=== PATIENT | male | born 1950 | race Caucasian/White ===

== ENCOUNTER 2022-06-21 15:03 | Inpatient (IN) | payer MEDICARE ==
[2022-06-21] MEDS ORDERED: SODIUM CHLORIDE 0.9% 1,000 ML IV STA (15:25)
[2022-06-21 15:30] LABS: Glucose,Whole Blood 295 mg/dL (70-110)
[2022-06-21 16:24] LABS: Basophils % (A) 0 %; Eosinophils # (A) 0.1 k/uL (0-0.7); Eosinophils % (A) 3 %; HCT 24.7 % (39.0-53.0); HGB 8.2 gm/dL (13.0-17.5); Lymphocytes % (A) 26 %; MCH 31.5 pg (25.0-35.0); MCHC 33.1 g/dL (31.0-37.0); MCV 95.4 fL (80.0-100.0); Mean Platelet Volume 8.7; Monocytes # (A) 0.3 k/uL (0-1.0); Monocytes % (A) 7 %; Neutrophils # (A) 2.4 k/uL (1.3-7.7); Neutrophils % (A) 62 %; Platelet Count 139 k/uL (150-450); RBC 2.59 m/uL (4.30-5.90); RDW 13.2 % (11.5-15.5); WBC 3.9 k/uL (3.8-10.6)
[2022-06-21 16:39] LABS: Albumin 2.5 g/dL (3.5-5.0); Magnesium 1.1 mg/dL (1.6-2.3); Potassium 3.3 mmol/L (3.5-5.1); Total Bilirubin 0.2 mg/dL (0.2-1.3); Total Protein 4.6 g/dL (6.3-8.2)
[2022-06-21] MEDS ORDERED: PRAMIPEXOLE 0.5 MG TAB PO STA (16:59)
[2022-06-21] MEDS ORDERED: ACETAMINOPHEN TAB 500 MG TAB PO STA (17:00)
[2022-06-21 17:53] LABS: Appearance,Urine Clear (Clear); Bilirubin,Urine Negative (Negative); Blood,Urine Negative (Negative); Color,Urine Yellow; Glucose,Urine (UA) 4+ (Negative); Ketones,Urine Negative (Negative); Leukocyte Esterase,Urine Negative (Negative); Nitrite,Urine Negative (Negative); Protein,Urine Negative (Negative); Specific Gravity,Urine 1.015 (1.001-1.035); Urobilinogen,Urine <2.0 mg/dL (<2.0)
--- NOTE | 2022-06-21 18:31 | CT ---
EXAMINATION TYPE: CT brain wo con DATE OF EXAM: 06/21/2022 COMPARISON: None HISTORY: h/o mini stroke, right side weakness CT DLP: 1133.4 mGycm Automated exposure control for dose reduction was used. Images obtained of the brain with no contrast. There is cerebral cortical atrophy. There is no mass effect or midline shift. No sign of intracranial hemorrhage. The calvarium is intact. There is normal aeration of the mastoid sinuses. IMPRESSION: Cerebral atrophy. No acute abnormality.
[2022-06-21] MEDS ORDERED: NALOXONE 0.4 MG/ML 1 ML VIAL IV PRN (20:08)
--- NOTE | 2022-06-21 20:08 | ED ---
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 His sister is at bedside and helps provide the history. States that the patient was hospitalized at [facility] for Covid. Patient was weak and accidentally wedged h imself in bed on his right side. He spent a considerable amount of time laying on his right side causing rhabdomyolysis and neuropraxia. He was transferred to rehab for the right-sided weakness. Reports that his right arm has improved however his right leg continues to be weak. He was discharged from rehab after insurance denied him any further stay. Patient's was discharged home. Since he has been home he has not been ambulating. Sister noted last night that the patient seemed more confused than normal. She was going to take a urine sample into the primary care office to evaluate for urinary tract infection however the last and the patient urinated was last night at 9:30. Patient has no urge to go. Today they checked the patient's glucose and it was in the 400s. Because of the hyperglycemia and confusion they called an ambulance. Patient arrives alert and able to answer questions. He reports that he feels like his weakness in his right side is worse than what it normally has been. No history of strokes. Does admit to some dysuria. No fevers. No chest pain. No other alleviating, precipitating or modifying factors - Related Data Home Medications Medication Instructions Recorded Confirmed Acetaminophen [Tylenol Arthritis] 650 mg PO Q4H PRN 06/21/22 06/21/22 Albuterol Sulfate [Ventolin HFA] 2 puff INHALATION RT-Q6H PRN 06/21/22 06/21/22 Budesonide/Formoterol Fumarate 2 puff INHALATION RT-BID PRN 06/21/22 06/22/22 [Symbicort 160-4.5 Mcg Inhaler] Cholecalciferol [Vitamin D3 (125 125 mcg PO DAILY 06/21/22 06/21/22 Mcg = 5000 Iu)] Empagliflozin [Jardiance] 10 mg PO DAILY 06/21/22 06/21/22 Furosemide [Lasix] 20 mg PO DIRECTED 06/21/22 06/21/22 Gabapentin 600 mg PO TID 06/21/22 06/21/22 HYDROcodone/APAP 5-325MG [[place] 1 tab PO Q4HR PRN 06/21/22 06/21/22 5-325] Pioglitazone [Actos] 45 mg PO DAILY 06/21/22 06/21/22 Simvastatin [Zocor] 20 mg PO HS 06/21/22 06/21/22 Terazosin HCl 10 mg PO DAILY 06/21/22 06/21/22 Vitamin B-12 250 Mcg 250 mcg PO DAILY 06/21/22 06/21/22 buPROPion XL [Wellbutrin XL] 300 mg PO DAILY 06/21/22 06/21/22 glipiZIDE [Glucotrol] 10 mg PO BID 06/21/22 06/21/22 lisinopriL [Zestril] 10 mg PO DAILY 06/21/22 06/21/22 metFORMIN HCL ER [Glucophage XR] 1,000 mg PO HS 06/21/22 06/21/22 tiZANidine HCL 2 mg PO HS PRN 06/21/22 06/21/22 Allergies Allergy/AdvReac Type Severity Reaction Status Date / Time latex Allergy Rash/Hives Verified 06/21/22 20:20 Review of Systems ROS Statement: Those systems with pertinent positive or pertinent negative responses have been documented in the HPI. ROS Other: All systems not noted in ROS Statement are negative. Past Medical History Past Medical History: Diabetes Mellitus Additional Past Medical History / Comment(s): post polio mylopathy, right sided hemiplegia History of Any Multi-Drug Resistant Organisms: None Reported Additional Past Surgical History / Comment(s): Mulitple neck fractures, cervical surgeries, lumbar decompression Past Psychological History: Bipolar Smoking Status: Former smoker Past Alcohol Use History: Occasional Past Drug Use History: None Reported - Past Family History familiy Family Medical History: Coronary Artery Disease (CAD) General Exam Limitations: no limitations General appearance: alert, in no apparent distress Head exam: Present: atraumatic, normocephalic, normal inspection Eye exam: Present: normal appearance, PERRL, EOMI. Absent: scleral icterus, conjunctival injection, periorbital swelling ENT exam: Present: normal exam, mucous membranes moist Neck exam: Present: normal inspection. Absent: tenderness, meningismus, lymphadenopathy Respiratory exam: Present: normal lung sounds bilaterally. Absent: respiratory distress, wheezes, rales, rhonchi, stridor Cardiovascular Exam: Present: regular rate, normal rhythm, normal heart sounds. Absent: systolic murmur, diastolic murmur, rubs, gallop, clicks GI/Abdominal exam: Present: soft, distended (suprapubic), normal bowel sounds. Absent: tenderness, guarding, rebound, rigid Extremities exam: Present: normal capillary refill, other (2/5 strength rle. equal glass cutting machine feeder strength of the bilateral upper extremities). Absent: tenderness, pedal edema, joint swelling, calf tenderness Back exam: Present: normal inspection Neurological exam: Present: alert, oriented X3, CN II-XII intact Psychiatric exam: Present: normal affect, normal mood Skin exam: Present: warm, dry, intact, normal color. Absent: rash Course Vital Signs 06/21/22 06/21/22 06/21/22 15:07 16:33 17:46 Temperature 97.0 F L Pulse Rate 77 85 92 Pulse Rate [ Left Pulse Oximetery] Respiratory 18 18 18 Rate Blood Pressure 103/61 113/59 136/70 Blood Pressure [Left Arm] O2 Sat by Pulse 99 98 96 Oximetry 06/21/22 06/21/22 06/21/22 18:00 22:58 23:39 Temperature 97.9 F Pulse Rate 94 107 H Pulse Rate [ 105 H Left Pulse Oximetery] Respiratory 18 17 16 Rate Blood Pressure 117/64 94/40 Blood Pressure 102/56 [Left Arm] O2 Sat by Pulse 96 97 97 Oximetry EKG Findings - EKG Comments: EKG Findings:: EKG demonstrates normal sinus rhythm with rate of 84. MN interval 190. QRS 101. QTC of 443. No acute ST segment elevations or depressions Medical Decision Making - Medical Decision Making Upon arrival patient was placed into room 4. Thorough history and physical exam is performed. Accu-Chek is obtained and is 295. IV is established and laboratory studies are conducted. They are reviewed. Sodium low at 129. Potassium 3.3. Magnesium extremely low at 1.1. Calcium 6. Ionized calcium is 4.5. We did perform a bladder scan which demonstrated greater than 700 in the patient's bladder. Because of this we did recommend Campbell placement for which the patient was agreeable. Patient was sent for a CT of his head because of his slurred speech and confusion. CT is negative for any acute process. Patient was given Tylenol and Mirapex for his restless leg. I also replaced the patient's magnesium. He is started on fluid hydration. Recommended admission with urology consultation for his urinary retention. Patient was agreeable to this plan. Spoke with Dr. Porter who agreed to admit the patient - Lab Data Result diagrams: 06/22/22 04:26 06/23/22 07:17 Lab Results 06/21/22 06/21/22 06/21/22 Range/Units 15:28 16:12 16:12 WBC 3.9 (3.8-10.6) k/uL RBC 2.59 L (4.30-5.90) m/uL Hgb 8.2 L (13.0-17.5) gm/dL Hct 24.7 L (39.0-53.0) % MCV 95.4 (80.0-100.0) fL MCH 31.5 (25.0-35.0) pg MCHC 33.1 (31.0-37.0) g/dL RDW 13.2 (11.5-15.5) % Plt Count 139 L (150-450) k/uL MPV 8.7 Neutrophils % 62 % Lymphocytes % 26 % Monocytes % 7 % Eosinophils % 3 % Basophils % 0 % Neutrophils # 2.4 (1.3-7.7) k/uL Lymphocytes # 1.0 (1.0-4.8) k/uL Monocytes # 0.3 (0-1.0) k/uL Eosinophils # 0.1 (0-0.7) k/uL Basophils # 0.0 (0-0.2) k/uL Sodium (137-145) mmol/L Potassium (3.5-5.1) mmol/L Chloride (98-107) mmol/L Carbon Dioxide (22-30) mmol/L Anion Gap mmol/L BUN (9-20) mg/dL Creatinine (0.66-1.25) mg/dL Est GFR (CKD-EPI)AfAm (>60 ml/min/1.73 sqM) Est GFR (CKD-EPI)NonAf (>60 ml/min/1.73 sqM) Glucose (74-99) mg/dL POC Glucose (mg/dL) 295 H (70-110) mg/dL POC Glu Media Operator ID Viktoria Lucero Lactic Ac Sepsis Rflx Plasma Lactic Acid Clarence (0.7-2.0) mmol/L Calcium (8.4-10.2) mg/dL Ionized Calcium Clare (4.5-5.3) mg/dL Magnesium (1.6-2.3) mg/dL Total Bilirubin (0.2-1.3) mg/dL AST (17-59) U/L ALT (4-49) U/L Alkaline Phosphatase (38-126) U/L Creatine Kinase (55-170) U/L Troponin I (0.000-0.034) ng/mL Total Protein (6.3-8.2) g/dL Albumin (3.5-5.0) g/dL Urine Color Yellow Urine Appearance Clear (Clear) Urine pH 5.0 (5.0-8.0) Ur Specific [place] 1.015 (1.001-1.035) Urine Protein Negative (Negative) Urine Glucose (UA) 4+ H (Negative) Urine Ketones Negative (Negative) Urine Blood Negative (Negative) Urine Nitrite Negative (Negative) Urine Bilirubin Negative (Negative) Urine Urobilinogen <2.0 (<2.0) mg/dL Ur Leukocyte Esterase Negative (Negative) 06/21/22 06/21/22 06/21/22 Range/Units 16:12 16:12 16:12 WBC (3.8-10.6) k/uL RBC (4.30-5.90) m/uL Hgb (13.0-17.5) gm/dL Hct (39.0-53.0) % MCV (80.0-100.0) fL MCH (25.0-35.0) pg MCHC (31.0-37.0) g/dL RDW (11.5-15.5) % Plt Count (150-450) k/uL MPV Neutrophils % % Lymphocytes % % Monocytes % % Eosinophils % % Basophils % % Neutrophils # (1.3-7.7) k/uL Lymphocytes # (1.0-4.8) k/uL Monocytes # (0-1.0) k/uL Eosinophils # (0-0.7) k/uL Basophils # (0-0.2) k/uL Sodium 129 L (137-145) mmol/L Potassium 3.3 L (3.5-5.1) mmol/L Chloride 104 (98-107) mmol/L Carbon Dioxide 15 L (22-30) mmol/L Anion Gap 10 mmol/L BUN 24 H (9-20) mg/dL Creatinine 1.05 (0.66-1.25) mg/dL Est GFR (CKD-EPI)AfAm 83 (>60 ml/min/1.73 sqM) Est GFR (CKD-EPI)NonAf 72 (>60 ml/min/1.73 sqM) Glucose 190 H (74-99) mg/dL POC Glucose (mg/dL) (70-110) mg/dL POC Glu Media Operator ID Lactic Ac Sepsis Rflx Plasma Lactic Acid Clarence 3.0 H* (0.7-2.0) mmol/L Calcium 6.0 L* (8.4-10.2) mg/dL Ionized Calcium Clare (4.5-5.3) mg/dL Magnesium 1.1 L (1.6-2.3) mg/dL Total Bilirubin 0.2 (0.2-1.3) mg/dL AST 34 (17-59) U/L ALT 35 (4-49) U/L Alkaline Phosphatase 47 (38-126) U/L Creatine Kinase 197 H (55-170) U/L Troponin I <0.012 (0.000-0.034) ng/mL Total Protein 4.6 L (6.3-8.2) g/dL Albumin 2.5 L (3.5-5.0) g/dL Urine Color Urine Appearance (Clear) Urine pH (5.0-8.0) Ur Specific [place] (1.001-1.035) Urine Protein (Negative) Urine Glucose (UA) (Negative) Urine Ketones (Negative) Urine Blood (Negative) Urine Nitrite (Negative) Urine Bilirubin (Negative) Urine Urobilinogen (<2.0) mg/dL Ur Leukocyte Esterase (Negative) 06/21/22 06/21/22 Range/Units 16:44 16:59 WBC (3.8-10.6) k/uL RBC (4.30-5.90) m/uL Hgb (13.0-17.5) gm/dL Hct (39.0-53.0) % MCV (80.0-100.0) fL MCH (25.0-35.0) pg MCHC (31.0-37.0) g/dL RDW (11.5-15.5) % Plt Count (150-450) k/uL MPV Neutrophils % % Lymphocytes % % Monocytes % % Eosinophils % % Basophils % % Neutrophils # (1.3-7.7) k/uL Lymphocytes # (1.0-4.8) k/uL Monocytes # (0-1.0) k/uL Eosinophils # (0-0.7) k/uL Basophils # (0-0.2) k/uL Sodium (137-145) mmol/L Potassium (3.5-5.1) mmol/L Chloride (98-107) mmol/L Carbon Dioxide (22-30) mmol/L Anion Gap mmol/L BUN (9-20) mg/dL Creatinine (0.66-1.25) mg/dL Est GFR (CKD-EPI)AfAm (>60 ml/min/1.73 sqM) Est GFR (CKD-EPI)NonAf (>60 ml/min/1.73 sqM) Glucose (74-99) mg/dL POC Glucose (mg/dL) (70-110) mg/dL POC Glu Media Operator ID Lactic Ac Sepsis Rflx Y Plasma Lactic Acid Clarence (0.7-2.0) mmol/L Calcium (8.4-10.2) mg/dL Ionized Calcium Clare 4.5 (4.5-5.3) mg/dL Magnesium (1.6-2.3) mg/dL Total Bilirubin (0.2-1.3) mg/dL AST (17-59) U/L ALT (4-49) U/L Alkaline Phosphatase (38-126) U/L Creatine Kinase (55-170) U/L Troponin I (0.000-0.034) ng/mL Total Protein (6.3-8.2) g/dL Albumin (3.5-5.0) g/dL Urine Color Urine Appearance (Clear) Urine pH (5.0-8.0) Ur Specific [place] (1.001-1.035) Urine Protein (Negative) Urine Glucose (UA) (Negative) Urine Ketones (Negative) Urine Blood (Negative) Urine Nitrite (Negative) Urine Bilirubin (Negative) Urine Urobilinogen (<2.0) mg/dL Ur Leukocyte Esterase (Negative) Disposition Clinical Impression: Right sided weakness, Encephalopathy, Hypomagnesemia, Urinary retention, Hyponatremia, Hypokalemia Disposition: ADMITTED IP TO THIS [facility] Condition: Stable Is patient prescribed a controlled substance at d/c from ED?: No Time of Disposition: 20:08 Decision to Admit Reason: Admit from EC Decision Date: 06/21/22 Decision Time: 20:08
[2022-06-21] MEDS: MAGNESIUM SULFATE-D5W PMX 1 GM in DEXTROSE/WATER 1 100ML.BAG IVPB SCH ×2 (20:14→22:38)
[2022-06-21] MEDS: SODIUM CHLORIDE 0.9% 1,000 ML IV SCH (22:37)
[2022-06-21] MEDS ORDERED: ALBUTEROL NEBULIZED 2.5 MG/3 ML INHALATION PRN (23:16)
[2022-06-21] MEDS ORDERED: HYDROcodone/APAP 5-325MG 1 EACH TAB PO PRN (23:16)
[2022-06-22] MEDS: ACETAMINOPHEN TAB 325 MG TAB PO PRN ×2 (01:15→09:26)
[2022-06-22] MEDS: tiZANidine 4 MG TAB PO PRN ×2 (01:15→22:27)
[2022-06-22] MEDS: ATORVASTATIN 10 MG TAB PO SCH ×2 (01:16→20:49)
[2022-06-22] MEDS: GABAPENTIN 300 MG CAP PO SCH ×4 (01:16→20:48)
[2022-06-22] MEDS ORDERED: MORPHINE SULFATE 4 MG/ML SYRINGE IVP PRN (01:21)
--- NOTE | 2022-06-22 04:23 | P.HPIM ---
History of Present Illness H&P Date: 06/21/22 Chief Complaint: confusion hyperglycemia 71 year old male with DM , Hypertension , history of polio patient was hospitalized at [facility] last month, for acute rhabdo, when he slid into the side of the bed and was stuck in there for about 6 hours. he also caught covid later while he was at the hospital being treated. since this incident he got extremly weak in both upper and lower right extremities , with his leg significantly weaker. he does admit to history of polio when he was younger, but up until last month , he was able to ambulate at times with a cane, and drive his car. he does admit to chronic neuropathy over his right upper and lower extremities. initially upon presentation to [facility] last month he was suspected to have a stroke but then later he was found to have rhabdo. once he was stable he was discharged to a rehab , and has noticed significant improvement over his right upper extremity , but not much in his leg. however, he only spent short period and was released due to insurance coverage, back home. for the past 3-4 days, it has been very difficult at home, as he is left home alone for long hours at a time, while he is completely weak in his right leg and unable to stand or transfer himself. today he was brought in due to confusion, hyperglycemia and urinary retention . however, during my interview he was appropriate answering questions properly. in the ED ct of the brain was done, no acute pathology blood work , showed electrolytes imbalance. patient also reports history of spine surgery due to pinched nerves. he otherwise denies any chest pain , trouble breathing, nausea vomiting, abd pain , headache, changes in vision or hearing , he denies any history of stroke Review of Systems Pertinent positives as noted in HPI. All other systems were reviewed and are negative Past Medical History Past Medical History: Diabetes Mellitus, Hypertension Additional Past Medical History / Comment(s): post polio mylopathy, right sided hemiplegia History of Any Multi-Drug Resistant Organisms: None Reported Additional Past Surgical History / Comment(s): Mulitple neck fractures, cervical surgeries, lumbar decompression Past Psychological History: Bipolar Smoking Status: Former smoker Past Alcohol Use History: Occasional Past Drug Use History: None Reported - Past Family History familiy Family Medical History: Coronary Artery Disease (CAD) Medications and Allergies Home Medications Medication Instructions Recorded Confirmed Type Acetaminophen [Tylenol Arthritis] 650 mg PO Q4H PRN 06/21/22 06/21/22 History Albuterol Sulfate [Ventolin HFA] 2 puff INHALATION RT-Q6H PRN 06/21/22 06/21/22 History Budesonide/Formoterol Fumarate 2 puff INHALATION DIRECTED PRN 06/21/22 06/21/22 History [Symbicort 160-4.5 Mcg Inhaler] Cholecalciferol [Vitamin D3 (125 125 mcg PO DAILY 06/21/22 06/21/22 History Mcg = 5000 Iu)] Empagliflozin [Jardiance] 10 mg PO DAILY 06/21/22 06/21/22 History Furosemide [Lasix] 20 mg PO DIRECTED 06/21/22 06/21/22 History Gabapentin 600 mg PO TID 06/21/22 06/21/22 History HYDROcodone/APAP 5-325MG [[place] 1 tab PO Q4HR PRN 06/21/22 06/21/22 History 5-325] Pioglitazone [Actos] 45 mg PO DAILY 06/21/22 06/21/22 History Simvastatin [Zocor] 20 mg PO HS 06/21/22 06/21/22 History Terazosin HCl 10 mg PO DAILY 06/21/22 06/21/22 History Vitamin B-12 250 Mcg 250 mcg PO DAILY 06/21/22 06/21/22 History buPROPion XL [Wellbutrin XL] 300 mg PO DAILY 06/21/22 06/21/22 History glipiZIDE [Glucotrol] 10 mg PO BID 06/21/22 06/21/22 History lisinopriL [Zestril] 10 mg PO DAILY 06/21/22 06/21/22 History metFORMIN HCL ER [Glucophage XR] 1,000 mg PO HS 06/21/22 06/21/22 History tiZANidine HCL 2 mg PO HS PRN 06/21/22 06/21/22 History Allergies Allergy/AdvReac Type Severity Reaction Status Date / Time latex Allergy Rash/Hives Verified 06/21/22 20:20 Physical Exam Vitals: Vital Signs Temp Pulse Resp BP Pulse Ox 06/21/22 18:00 94 18 117/64 96 06/21/22 17:46 92 18 136/70 96 06/21/22 16:33 85 18 113/59 98 06/21/22 15:07 97.0 F L 77 18 103/61 99 Intake and Output 06/21/22 06/21/22 06/21/22 06:59 14:59 22:59 Output Total 750 Balance -750 Output: Urine 750 Uretheral (Mcgraw) 750 Other: Weight 109.769 kg Constitutional: No acute distress, conversant, pleasant Eyes: Anicteric sclerae, moist conjunctiva, Pupils equal round reactive to light ENMT: NC/AT Oropharynx clear, no erythema, or exudates Neck: Supple, no masses, or JVD No carotid bruits No thyromegaly Lungs: Clear to auscultation Clear to percussion Normal respiratory effort, no accessory muscle use Cardiovascular: Heart regular in rate and rhythm, No murmurs, gallops, or rubs No peripheral edema Abdominal: Soft Nontender, no guarding, rebound or rigidity Abdomen moving with respiration Normoactive bowel sounds No hepatomegaly, No splenomegaly No palpable mass No abdominal wall hernia noted Skin: Normal temperature, tone, texture, turgor Extremities: No digital cyanosis No clubbing Pedal pulses intact and symmetrical Radial pulses intact and symmetrical No calf tenderness Psychiatric: Alert and oriented to person, place and time Neuro Muscles Strength 5/5 in left upper and lower extremity , 2/5 right lower extremity , and 4/5 right upper extremity no sensation over the right lower extremity , increase sensitivity to light touch over right upper extremity Cranial nerves II-XII grossly intact Lymphatics: no palpable cervical or supraclavicular lymph nodes Results CBC & Chem 7: 06/21/22 16:12 06/21/22 16:12 Labs: Abnormal Lab Results - Last 24 Hours (Table) 06/21/22 06/21/22 06/21/22 Range/Units 15:28 16:12 16:12 RBC 2.59 L (4.30-5.90) m/uL Hgb 8.2 L (13.0-17.5) gm/dL Hct 24.7 L (39.0-53.0) % Plt Count 139 L (150-450) k/uL Sodium (137-145) mmol/L Potassium (3.5-5.1) mmol/L Carbon Dioxide (22-30) mmol/L BUN (9-20) mg/dL Glucose (74-99) mg/dL POC Glucose (mg/dL) 295 H (70-110) mg/dL Plasma Lactic Acid Clarence (0.7-2.0) mmol/L Calcium (8.4-10.2) mg/dL Magnesium (1.6-2.3) mg/dL Creatine Kinase (55-170) U/L Total Protein (6.3-8.2) g/dL Albumin (3.5-5.0) g/dL Urine Glucose (UA) 4+ H (Negative) 06/21/22 06/21/22 Range/Units 16:12 16:12 RBC (4.30-5.90) m/uL Hgb (13.0-17.5) gm/dL Hct (39.0-53.0) % Plt Count (150-450) k/uL Sodium 129 L (137-145) mmol/L Potassium 3.3 L (3.5-5.1) mmol/L Carbon Dioxide 15 L (22-30) mmol/L BUN 24 H (9-20) mg/dL Glucose 190 H (74-99) mg/dL POC Glucose (mg/dL) (70-110) mg/dL Plasma Lactic Acid Clarence 3.0 H* (0.7-2.0) mmol/L Calcium 6.0 L* (8.4-10.2) mg/dL Magnesium 1.1 L (1.6-2.3) mg/dL Creatine Kinase 197 H (55-170) U/L Total Protein 4.6 L (6.3-8.2) g/dL Albumin 2.5 L (3.5-5.0) g/dL Urine Glucose (UA) (Negative) Assessment and Plan Assessment: acute metabolic encephalopathy , resolved electrolyte imbalance, hypokalemia , hypomagnesemia , hypocalcemia , and hyponatremia replace electrolytes and monitor levels PO calcium supplement Brain CT no acute pathology right sided weakness with history of post polio myelopathy neuro consult PT eval fall precautions urinary retention BPH s/p mcgraw cath urology consult continue doxazosin hyperglycemia , DM insulin sliding scale resume oral hypoglycemic agents anemia , denies GI bleeding continue to monitor full code DVT PPX heparin sc tid
[2022-06-22 05:45] LABS: Glucose,Whole Blood 273 mg/dL (70-110)
[2022-06-22 08:40] LABS: Glucose,Whole Blood 239 mg/dL (70-110)
[2022-06-22] MEDS: INSULIN ASPART (NovoLOG) 100 UNIT/ML VIAL SQ SCH ×4 (08:50→22:26)
[2022-06-22] MEDS: HEPARIN SODIUM,PORCINE/PF 5,000 UNIT/0.5 ML SYRINGE SQ SCH ×2 (08:50→16:39)
[2022-06-22] MEDS: SYMBICORT 160-4.5 MCG INHALER INHALATION PRN ×2 (09:00→19:47)
[2022-06-22] MEDS: DAPAGLIFLOZIN PROPANEDIOL 10 MG TABLET PO SCH (09:29)
[2022-06-22] MEDS: buPROPion XL 300 MG TAB.ER.24H PO SCH (09:29)
[2022-06-22] MEDS: CHOLECALCIFEROL 125 MCG (5000 IU) TABLET PO SCH (09:29)
[2022-06-22] MEDS: DOXAZOSIN 4 MG TAB PO SCH (09:30)
[2022-06-22] MEDS: glipiZIDE 10 MG TAB PO SCH ×2 (09:30→20:49)
[2022-06-22] MEDS: PIOGLITAZONE 45 MG TAB PO SCH (09:31)
[2022-06-22] MEDS: lisinopriL 10 MG TAB PO SCH (09:31)
[2022-06-22] MEDS: SODIUM CHLORIDE 0.9% 1,000 ML IV SCH ×2 (09:31→22:26)
[2022-06-22 09:37] LABS: African American GFR (CKD) 64.1 (60.0-200.0); Anion Gap 10.1 mmol/L (10.00-18.00); BUN/Creat Ratio 20.23 Ratio (12.00-20.00); Blood Urea Nitrogen 26.3 mg/dL (9.0-27.0); Calcium 8.9 mg/dL (8.7-10.3); Carbon Dioxide 22.9 mmol/L (20.0-27.5); Magnesium 2.3 mg/dL (1.5-2.4); Non-African American GFR(CKD) 55.3 (60.0-200.0); Potassium 4.8 mmol/L (3.5-5.5)
[2022-06-22 09:41] LABS: Basophils # (A) 0.02 X 10*3/uL (0.00-0.10); Basophils % (A) 0.4 %; Eosinophils # (A) 0.14 X 10*3/uL (0.04-0.35); Eosinophils % (A) 2.5 %; HGB 9.6 g/dL (13.0-17.0); Immature Grans, Automated 0.4 %; Lymphocytes # (A) 1.14 X 10*3/uL (0.90-5.00); Lymphocytes % (A) 20.5 %; MCH 30.8 pg (27.0-32.0); MCHC 33.1 g/dL (32.0-37.0); MCV 92.9 fL (80.0-97.0); Monocytes # (A) 0.56 X 10*3/uL (0.20-1.00); Monocytes % (A) 10.1 %; NRBC Per 100 WBC 0 /100 WBCS (0.0-0.0); Neutrophils # (A) 3.68 X 10*3/uL (1.80-7.70); Neutrophils % (A) 66.1 %; Platelet Count 213 X 10*3/uL (140-440); RBC 3.12 X 10*6/uL (4.40-5.60); RDW 13.2 % (11.5-14.5); WBC 5.56 X 10*3/uL (4.50-10.00)
[2022-06-22 11:27] LABS: Glucose,Whole Blood 250 mg/dL (70-110)
--- NOTE | 2022-06-22 11:40 | P.PN ---
Subjective Progress Note Date: 06/22/22 Principal diagnosis: [facility] Hospital Course: 71-year-old male with history of diabetes, hypertension, poliomyelitis presenting for acute encephalopathy, and electrolyte abnormalities. Patient was recently hospitalized at [place] for rhabdomyolysis, new onset right sided weakness. During that time he was suspected to have stroke, workup was negative. Patient claims that he also had MRI of his spine which did not show anything significant. He was then discharged to rehab, and noticed improvement in his right upper extremity, but not in his lower extremity. He was released from rehab due to insurance issues. Since coming home, he has been having diffi culty ambulating, transferring, eating and drinking. His son had noted that he was confused, and decided to bring him to the hospital. On admission, vital signs were within normal limits, his sodium was 129, potassium 3.3, glucose of 295, calcium of 6 and albumin of 2.5, magnesium 1.1 , lactic acid at 3. Since being admitted, his altered mentation has resolved, electrolytes have improved with repletion. Subjective: Patient seen and examined at bedside. No acute events overnight. He denies any significant chest pain, shortness of breath, abdominal pain, nausea, vomiting, diarrhea, or constipation. He has a Mcgraw catheter in place for urinary retention. He continues to have right-sided lower extremity weakness. Pertinent positives and negatives as discussed above, a complete review of systems was performed and all other systems are negative. Vitals Signs Reviewed. General: nontoxic, no distress, appears at stated age Derm: warm, dry Head: atraumatic, normocephalic, symmetric Eyes: EOMI, no lid lag, anicteric sclera Mouth: no lip lesion, mucus membranes moist Cardiovascular: S1S2 reg, no murmur Lungs: CTA bilateral, no rhonchi, no rales , no accessory muscle use Abdominal: soft, nontender to palpation, no guarding, no appreciable organomegaly Ext: no gross muscle atrophy, no edema, no contractures, 2/5 right lower extremity strength, 3/5 left lower extremity strength Neuro: CN II-XI grossly intact, no focal neuro deficits, diminished sensation in the right lower extremity Psych: Alert, oriented 3, appropriate affect Assessment and Plan: Acute metabolic encephalopathy , resolved Hypokalemia, hypomagnesemia, hypokalemia - resolved - Head CT no acute pathology Hyponatremia, likely hypovolemic -Continue fluids, encourage oral intake Right sided weakness Questionable history of polio myelitis -Patient claims that MRI spine was completed, normal -No recent lower extremity EMG studies -neuro consult -PT eval -fall precautions Urinary retention BPH -s/p mcgraw cath -urology consult -continue doxazosin Hyperglycemia , DM -insulin sliding scale -resume oral hypoglycemic agents Anemia , denies GI bleeding continue to monitor DVT ppx: Subcu heparin Code status: Full code Anticipated discharge place: Likely rehab Anticipated discharge time: Pending clinical course Objective - Vital Signs Vital signs: Vital Signs Temp 97.8 F 06/22/22 02:00 Pulse 110 H 06/22/22 02:00 Resp 16 06/22/22 02:00 BP 115/60 06/22/22 02:00 Pulse Ox 97 06/21/22 23:39 FiO2 Intake & Output 06/21/22 06/22/22 06/22/22 18:59 06:59 18:59 Output Total 750 1200 Balance -750 -1200 Weight 109.769 kg 109.769 kg Output: Urine 750 1200 Uretheral (Mcgraw) 750 - Labs CBC & Chem 7: 06/22/22 04:26 06/22/22 04:26 Labs: Abnormal Lab Results - Last 24 Hours (Table) 06/21/22 06/21/22 06/21/22 Range/Units 15:28 16:12 16:12 RBC 2.59 L (4.30-5.90) m/uL Hgb 8.2 L (13.0-17.5) gm/dL Hct 24.7 L (39.0-53.0) % Plt Count 139 L (150-450) k/uL Sodium (137-145) mmol/L Potassium (3.5-5.1) mmol/L Carbon Dioxide (22-30) mmol/L BUN (9-20) mg/dL Est GFR (CKD-EPI)NonAf (60.0-200.0) BUN/Creatinine Ratio (12.00-20.00) Ratio Glucose (74-99) mg/dL POC Glucose (mg/dL) 295 H (70-110) mg/dL Plasma Lactic Acid Clarence (0.7-2.0) mmol/L Calcium (8.4-10.2) mg/dL Magnesium (1.6-2.3) mg/dL Creatine Kinase (55-170) U/L Total Protein (6.3-8.2) g/dL Albumin (3.5-5.0) g/dL Urine Glucose (UA) 4+ H (Negative) 06/21/22 06/21/22 06/22/22 Range/Units 16:12 16:12 04:26 RBC 3.12 L (4.30-5.90) m/uL Hgb 9.6 L (13.0-17.5) gm/dL Hct 29.0 L (39.0-53.0) % Plt Count (150-450) k/uL Sodium 129 L (137-145) mmol/L Potassium 3.3 L (3.5-5.1) mmol/L Carbon Dioxide 15 L (22-30) mmol/L BUN 24 H (9-20) mg/dL Est GFR (CKD-EPI)NonAf (60.0-200.0) BUN/Creatinine Ratio (12.00-20.00) Ratio Glucose 190 H (74-99) mg/dL POC Glucose (mg/dL) (70-110) mg/dL Plasma Lactic Acid Clarence 3.0 H* (0.7-2.0) mmol/L Calcium 6.0 L* (8.4-10.2) mg/dL Magnesium 1.1 L (1.6-2.3) mg/dL Creatine Kinase 197 H (55-170) U/L Total Protein 4.6 L (6.3-8.2) g/dL Albumin 2.5 L (3.5-5.0) g/dL Urine Glucose (UA) (Negative) 06/22/22 06/22/22 06/22/22 Range/Units 04:26 05:42 08:37 RBC (4.30-5.90) m/uL Hgb (13.0-17.5) gm/dL Hct (39.0-53.0) % Plt Count (150-450) k/uL Sodium 129 L (137-145) mmol/L Potassium (3.5-5.1) mmol/L Carbon Dioxide (22-30) mmol/L BUN (9-20) mg/dL Est GFR (CKD-EPI)NonAf 55.3 L (60.0-200.0) BUN/Creatinine Ratio 20.23 H (12.00-20.00) Ratio Glucose 261 H (74-99) mg/dL POC Glucose (mg/dL) 273 H 239 H (70-110) mg/dL Plasma Lactic Acid Clarence (0.7-2.0) mmol/L Calcium (8.4-10.2) mg/dL Magnesium (1.6-2.3) mg/dL Creatine Kinase (55-170) U/L Total Protein (6.3-8.2) g/dL Albumin (3.5-5.0) g/dL Urine Glucose (UA) (Negative) 06/22/22 Range/Units 11:26 RBC (4.30-5.90) m/uL Hgb (13.0-17.5) gm/dL Hct (39.0-53.0) % Plt Count (150-450) k/uL Sodium (137-145) mmol/L Potassium (3.5-5.1) mmol/L Carbon Dioxide (22-30) mmol/L BUN (9-20) mg/dL Est GFR (CKD-EPI)NonAf (60.0-200.0) BUN/Creatinine Ratio (12.00-20.00) Ratio Glucose (74-99) mg/dL POC Glucose (mg/dL) 250 H (70-110) mg/dL Plasma Lactic Acid Clarence (0.7-2.0) mmol/L Calcium (8.4-10.2) mg/dL Magnesium (1.6-2.3) mg/dL Creatine Kinase (55-170) U/L Total Protein (6.3-8.2) g/dL Albumin (3.5-5.0) g/dL Urine Glucose (UA) (Negative)
--- NOTE | 2022-06-22 11:51 | P.CNNES ---
History of Present Illness Consult date: 06/22/22 Reason for Consult: right lower extremity weakness History of Present Illness: The patient is a 71-year-old right-handed male who is seen in neurologic consultation on June 22, 2022, via teleneurology. The patient is being seen because of right lower extremity weakness. Patient reportedly has a history of polio which affected his right arm and leg. More recently, the patient was admitted to [facility] after being wedged between the bed and the wall, on his right side. The patient reportedly had right-sided weakness after this prolonged episode. There was concern for stroke. Stroke was ruled out. The patient did suffer rhabdomyolysis. While hospitalized, the patient developed a Covid 19 infection. He did undergo physical therapy while in the hospital and was eventually discharged to subacute rehabilitation. The patient was just discharged from the rehabilitation facility on . He was reportedly discharged because insurance would no longer play. The patient reports that on Thursday morning he got up from bed. He was able to get into his wheelchair and went out to the kitchen to have GBS. His son reportedly felt that the patient was confused. Blood sugar was checked and was found to be 400. Patient was brought into the hospital. Patient reports never having a blood sugar that high before. In the emergency department a CT scan of the brain was performed. There is no evidence of acute hemorrhage or infarct. At this point in time, the patient reports continued weakness in his proximal right upper extremity and weakness in the right leg. He says he is unable to lift his right leg from the bed. He is able to move it on the bed, but unable to lift it against gravity. Prior to the incident which caused him to go to [facility], the patient reports that he was able to ambulate. In addition to the weakness, the patient reports spasms of his right leg, shooting pain and paresthesias. The patient denies changes in vision. He denies headache. There is no difficulty with speech or swallowing. The patient reports not being confused at this time. Past Medical History Past Medical History: Diabetes Mellitus, Hypertension Additional Past Medical History / Comment(s): post polio mylopathy, right sided hemiplegia History of Any Multi-Drug Resistant Organisms: None Reported Additional Past Surgical History / Comment(s): Mulitple neck fractures, cervical surgeries, lumbar decompression Past Anesthesia/Blood Transfusion Reactions: No Reported Reaction Past Psychological History: Bipolar Smoking Status: Former smoker Past Alcohol Use History: Occasional Past Drug Use History: None Reported - Past Family History familiy Family Medical History: Coronary Artery Disease (CAD) Medications and Allergies Home Medications Medication Instructions Recorded Confirmed Type Acetaminophen [Tylenol Arthritis] 650 mg PO Q4H PRN 06/21/22 06/21/22 History Albuterol Sulfate [Ventolin HFA] 2 puff INHALATION RT-Q6H PRN 06/21/22 06/21/22 History Budesonide/Formoterol Fumarate 2 puff INHALATION DIRECTED PRN 06/21/22 06/21/22 History [Symbicort 160-4.5 Mcg Inhaler] Cholecalciferol [Vitamin D3 (125 125 mcg PO DAILY 06/21/22 06/21/22 History Mcg = 5000 Iu)] Empagliflozin [Jardiance] 10 mg PO DAILY 06/21/22 06/21/22 History Furosemide [Lasix] 20 mg PO DIRECTED 06/21/22 06/21/22 History Gabapentin 600 mg PO TID 06/21/22 06/21/22 History HYDROcodone/APAP 5-325MG [[place] 1 tab PO Q4HR PRN 06/21/22 06/21/22 History 5-325] Pioglitazone [Actos] 45 mg PO DAILY 06/21/22 06/21/22 History Simvastatin [Zocor] 20 mg PO HS 06/21/22 06/21/22 History Terazosin HCl 10 mg PO DAILY 06/21/22 06/21/22 History Vitamin B-12 250 Mcg 250 mcg PO DAILY 06/21/22 06/21/22 History buPROPion XL [Wellbutrin XL] 300 mg PO DAILY 06/21/22 06/21/22 History glipiZIDE [Glucotrol] 10 mg PO BID 06/21/22 06/21/22 History lisinopriL [Zestril] 10 mg PO DAILY 06/21/22 06/21/22 History metFORMIN HCL ER [Glucophage XR] 1,000 mg PO HS 06/21/22 06/21/22 History tiZANidine HCL 2 mg PO HS PRN 06/21/22 06/21/22 History Allergies Allergy/AdvReac Type Severity Reaction Status Date / Time latex Allergy Rash/Hives Verified 06/21/22 20:20 Physical Examination - Vital Signs Vital Signs: Vital Signs Temp Pulse Pulse Resp BP BP Pulse Ox 06/22/22 02:00 97.8 F 110 H 16 115/60 06/21/22 23:39 97.9 F 105 H 16 102/56 97 06/21/22 22:58 107 H 17 94/40 97 06/21/22 18:00 94 18 117/64 96 06/21/22 17:46 92 18 136/70 96 06/21/22 16:33 85 18 113/59 98 06/21/22 15:07 97.0 F L 77 18 103/61 99 Intake and Output 06/21/22 06/22/22 06/22/22 22:59 06:59 14:59 Output Total 750 1200 Balance -750 -1200 Output: Urine 750 1200 Uretheral ([place]bell) 750 Other: Weight 109.769 kg Gen.: The patient is reclining in the bed. He is well-nourished, well-developed and in no acute distress. HEENT: Head is atraumatic, normocephalic. Fundus not visualized. There is no scleral icterus. Mucous members are moist. Neck: Supple, without carotid bruits Heart: Regular rate and rhythm Extremities: Without edema. There is evidence of muscle atrophy. Neurological examination Mental status: Patient is awake, alert and oriented 3. His speech is clear. There is no dysarthria or aphasia. Cranial nerves: Pupils are equal at 2 mm and reactive. Visual elizalde are full to confrontation. Extraocular movements are intact. There is no nystagmus. Facial sensation is intact. There is no facial asymmetry. Hearing is grossly intact. Uvula and palate are midline. Shoulder shrug is symmetric. Tongue protrudes midline. 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 Right biceps and triceps 4/5. At rest, the patient's right hip is externally rotated. Right adductor strength 3/5. Right abductor strength 4/5. Left adductor and abductor strengths 5/5. Right ankle dorsiflexion 1/5, plantarflexion 4/5. Left ankle plantar and dorsiflexion 5/5. Sensation: There is decreased light touch sensation in the right upper extremity. Light touch sensation is absent in the right lower extremity Deep tendon reflexes: 1+/4+ in the upper extremities. Left patellar reflex 2+/4+. Right patellar reflex is absent. Coordination: Finger to nose testing is intact on the left, with mild ataxia on the right secondary to weakness Gait: Not assessed Results - Laboratory Findings CBC and BMP: 06/22/22 04:26 06/22/22 04:26 Abnormal Lab Findings: Abnormal Labs 06/21/22 06/21/22 06/21/22 15:28 16:12 16:12 RBC 2.59 L Hgb 8.2 L Hct 24.7 L Plt Count 139 L Sodium Potassium Carbon Dioxide BUN Est GFR (CKD-EPI)NonAf BUN/Creatinine Ratio Glucose POC Glucose (mg/dL) 295 H Plasma Lactic Acid Clarence Calcium Magnesium Creatine Kinase Total Protein Albumin Urine Glucose (UA) 4+ H 06/21/22 06/21/22 06/22/22 16:12 16:12 04:26 RBC 3.12 L Hgb 9.6 L Hct 29.0 L Plt Count Sodium 129 L Potassium 3.3 L Carbon Dioxide 15 L BUN 24 H Est GFR (CKD-EPI)NonAf BUN/Creatinine Ratio Glucose 190 H POC Glucose (mg/dL) Plasma Lactic Acid Clarence 3.0 H* Calcium 6.0 L* Magnesium 1.1 L Creatine Kinase 197 H Total Protein 4.6 L Albumin 2.5 L Urine Glucose (UA) 06/22/22 06/22/22 06/22/22 04:26 05:42 08:37 RBC Hgb Hct Plt Count Sodium 129 L Potassium Carbon Dioxide BUN Est GFR (CKD-EPI)NonAf 55.3 L BUN/Creatinine Ratio 20.23 H Glucose 261 H POC Glucose (mg/dL) 273 H 239 H Plasma Lactic Acid Clarence Calcium Magnesium Creatine Kinase Total Protein Albumin Urine Glucose (UA) - Diagnostic Findings Comments: CT scan of the brain reveals no signs of acute hemorrhage or infarct. There is reported cerebral atrophy Assessment and Plan Assessment: 1. 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 Hyponatremia 3. History of diabetes mellitus with hyperglycemia 4. Recent Covid 19 infection Plan: 1. Physical therapy for evaluation and treatment 2. The patient should follow up with a neurologist as an outpatient for further testing such as EMG 3. Consider gabapentin for neuropathic pain 4. Your treatment of hyponatremia Thank you for allowing us to participate in the care of this patient Dr. Loredo will assume neurologic coverage of this patient has of 06/21/2022 Time with Patient: Greater than 30 (spent 25 minutes examining this highly complex patient. Spent another 20 minutes reviewing labs, documentation, imaging reports and preparing this note)
--- NOTE | 2022-06-22 11:59 | P.GSCN ---
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 Was recently admitted to [facility] in [place] for his right-sided weakness, subsequently discharged to rehab, he was recently discharged home from rehab. He was brought to the emergency department by his sister which indicated patient was confused, CT brain in the ED showed no acute process. His urinalysis was only significant for glucosuria. His void residual was checked and was greater than 700 mL, Mcgraw catheter was placed. This morning on evaluation patient's altered mental status has resolved, he denies any voiding issues at baseline. No previous known history of urinary retention. Denies any gross hematuria or dysuria. He is on Cardura at baseline. Review of Systems - Constitutional Denies chills, Denies fever - EENT Ears, nose, mouth and throat: Denies dysphagia - Cardiovascular Denies chest pain, Denies shortness of breath - Respiratory Denies cough, Denies 7 - Gastrointestinal Reports as per HPI - Genitourinary Denies dysuria, Denies hematuria - Integumentary Denies rash, Denies unusual bruising - Neurological Reports weakness, Denies headaches Past Medical History Past Medical History: Diabetes Mellitus, Hypertension Additional Past Medical History / Comment(s): post polio mylopathy, right sided hemiplegia History of Any Multi-Drug Resistant Organisms: None Reported Additional Past Surgical History / Comment(s): Mulitple neck fractures, cervical surgeries, lumbar decompression Past Anesthesia/Blood Transfusion Reactions: No Reported Reaction Past Psychological History: Bipolar Smoking Status: Former smoker Past Alcohol Use History: Occasional Past Drug Use History: None Reported - Past Family History familiy Family Medical History: Coronary Artery Disease (CAD) Medications and Allergies Home Medications Medication Instructions Recorded Confirmed Type Acetaminophen [Tylenol Arthritis] 650 mg PO Q4H PRN 06/21/22 06/21/22 History Albuterol Sulfate [Ventolin HFA] 2 puff INHALATION RT-Q6H PRN 06/21/22 06/21/22 History Budesonide/Formoterol Fumarate 2 puff INHALATION DIRECTED PRN 06/21/22 06/21/22 History [Symbicort 160-4.5 Mcg Inhaler] Cholecalciferol [Vitamin D3 (125 125 mcg PO DAILY 06/21/22 06/21/22 History Mcg = 5000 Iu)] Empagliflozin [Jardiance] 10 mg PO DAILY 06/21/22 06/21/22 History Furosemide [Lasix] 20 mg PO DIRECTED 06/21/22 06/21/22 History Gabapentin 600 mg PO TID 06/21/22 06/21/22 History HYDROcodone/APAP 5-325MG [[place] 1 tab PO Q4HR PRN 06/21/22 06/21/22 History 5-325] Pioglitazone [Actos] 45 mg PO DAILY 06/21/22 06/21/22 History Simvastatin [Zocor] 20 mg PO HS 06/21/22 06/21/22 History Terazosin HCl 10 mg PO DAILY 06/21/22 06/21/22 History Vitamin B-12 250 Mcg 250 mcg PO DAILY 06/21/22 06/21/22 History buPROPion XL [Wellbutrin XL] 300 mg PO DAILY 06/21/22 06/21/22 History glipiZIDE [Glucotrol] 10 mg PO BID 06/21/22 06/21/22 History lisinopriL [Zestril] 10 mg PO DAILY 06/21/22 06/21/22 History metFORMIN HCL ER [Glucophage XR] 1,000 mg PO HS 06/21/22 06/21/22 History tiZANidine HCL 2 mg PO HS PRN 06/21/22 06/21/22 History Allergies Allergy/AdvReac Type Severity Reaction Status Date / Time latex Allergy Rash/Hives Verified 06/21/22 20:20 Surgical - Exam Vital Signs Temp Pulse Resp BP Pulse Ox 97.0 F L 77 18 103/61 99 06/21/22 15:07 06/21/22 15:07 06/21/22 15:07 06/21/22 15:07 06/21/22 15:07 - General no distress, no pain - Eyes normal ocular movement, no pale - ENT normal nares, normal mucosa - Respiratory normal expansion, normal respiratory effort - Abdomen Abdomen: soft, non tender - Genitourinary Mcgraw draining clear yellow urine - Psychiatric oriented to time, oriented to person, oriented to place Results - Labs 06/22/22 04:26 06/22/22 04:26 Abnormal Lab Results - Last 24 Hours (Table) 06/21/22 06/21/22 06/21/22 Range/Units 15:28 16:12 16:12 RBC 2.59 L (4.30-5.90) m/uL Hgb 8.2 L (13.0-17.5) gm/dL Hct 24.7 L (39.0-53.0) % Plt Count 139 L (150-450) k/uL Sodium (137-145) mmol/L Potassium (3.5-5.1) mmol/L Carbon Dioxide (22-30) mmol/L BUN (9-20) mg/dL Est GFR (CKD-EPI)NonAf (60.0-200.0) BUN/Creatinine Ratio (12.00-20.00) Ratio Glucose (74-99) mg/dL POC Glucose (mg/dL) 295 H (70-110) mg/dL Plasma Lactic Acid Clarence (0.7-2.0) mmol/L Calcium (8.4-10.2) mg/dL Magnesium (1.6-2.3) mg/dL Creatine Kinase (55-170) U/L Total Protein (6.3-8.2) g/dL Albumin (3.5-5.0) g/dL Urine Glucose (UA) 4+ H (Negative) 06/21/22 06/21/22 06/22/22 Range/Units 16:12 16:12 04:26 RBC 3.12 L (4.30-5.90) m/uL Hgb 9.6 L (13.0-17.5) gm/dL Hct 29.0 L (39.0-53.0) % Plt Count (150-450) k/uL Sodium 129 L (137-145) mmol/L Potassium 3.3 L (3.5-5.1) mmol/L Carbon Dioxide 15 L (22-30) mmol/L BUN 24 H (9-20) mg/dL Est GFR (CKD-EPI)NonAf (60.0-200.0) BUN/Creatinine Ratio (12.00-20.00) Ratio Glucose 190 H (74-99) mg/dL POC Glucose (mg/dL) (70-110) mg/dL Plasma Lactic Acid Clarence 3.0 H* (0.7-2.0) mmol/L Calcium 6.0 L* (8.4-10.2) mg/dL Magnesium 1.1 L (1.6-2.3) mg/dL Creatine Kinase 197 H (55-170) U/L Total Protein 4.6 L (6.3-8.2) g/dL Albumin 2.5 L (3.5-5.0) g/dL Urine Glucose (UA) (Negative) 06/22/22 06/22/22 06/22/22 Range/Units 04:26 05:42 08:37 RBC (4.30-5.90) m/uL Hgb (13.0-17.5) gm/dL Hct (39.0-53.0) % Plt Count (150-450) k/uL Sodium 129 L (137-145) mmol/L Potassium (3.5-5.1) mmol/L Carbon Dioxide (22-30) mmol/L BUN (9-20) mg/dL Est GFR (CKD-EPI)NonAf 55.3 L (60.0-200.0) BUN/Creatinine Ratio 20.23 H (12.00-20.00) Ratio Glucose 261 H (74-99) mg/dL POC Glucose (mg/dL) 273 H 239 H (70-110) mg/dL Plasma Lactic Acid Clarence (0.7-2.0) mmol/L Calcium (8.4-10.2) mg/dL Magnesium (1.6-2.3) mg/dL Creatine Kinase (55-170) U/L Total Protein (6.3-8.2) g/dL Albumin (3.5-5.0) g/dL Urine Glucose (UA) (Negative) 06/22/22 Range/Units 11:26 RBC (4.30-5.90) m/uL Hgb (13.0-17.5) gm/dL Hct (39.0-53.0) % Plt Count (150-450) k/uL Sodium (137-145) mmol/L Potassium (3.5-5.1) mmol/L Carbon Dioxide (22-30) mmol/L BUN (9-20) mg/dL Est GFR (CKD-EPI)NonAf (60.0-200.0) BUN/Creatinine Ratio (12.00-20.00) Ratio Glucose (74-99) mg/dL POC Glucose (mg/dL) 250 H (70-110) mg/dL Plasma Lactic Acid Clarence (0.7-2.0) mmol/L Calcium (8.4-10.2) mg/dL Magnesium (1.6-2.3) mg/dL Creatine Kinase (55-170) U/L Total Protein (6.3-8.2) g/dL Albumin (3.5-5.0) g/dL Urine Glucose (UA) (Negative) Diabetes panel 06/21/22 06/22/22 Range/Units 16:12 04:26 Sodium 129 L 129 L (137-145) mmol/L Potassium 3.3 L 4.8 (3.5-5.1) mmol/L Chloride 104 96 (98-107) mmol/L Carbon Dioxide 15 L 22.9 (22-30) mmol/L BUN 24 H 26.3 (9-20) mg/dL Creatinine 1.05 1.3 (0.66-1.25) mg/dL Glucose 190 H 261 H (74-99) mg/dL Calcium 6.0 L* 8.9 (8.4-10.2) mg/dL AST 34 (17-59) U/L ALT 35 (4-49) U/L Alkaline Phosphatase 47 (38-126) U/L Total Protein 4.6 L (6.3-8.2) g/dL Albumin 2.5 L (3.5-5.0) g/dL Calcium panel 06/21/22 06/21/22 06/22/22 Range/Units 16:12 16:59 04:26 Calcium 6.0 L* 8.9 (8.4-10.2) mg/dL Ionized Calcium Clare 4.5 (4.5-5.3) mg/dL Albumin 2.5 L (3.5-5.0) g/dL Pituitary panel 06/21/22 06/22/22 Range/Units 16:12 04:26 Sodium 129 L 129 L (137-145) mmol/L Potassium 3.3 L 4.8 (3.5-5.1) mmol/L Chloride 104 96 (98-107) mmol/L Carbon Dioxide 15 L 22.9 (22-30) mmol/L BUN 24 H 26.3 (9-20) mg/dL Creatinine 1.05 1.3 (0.66-1.25) mg/dL Glucose 190 H 261 H (74-99) mg/dL Calcium 6.0 L* 8.9 (8.4-10.2) mg/dL Adrenal panel 06/21/22 06/22/22 Range/Units 16:12 04:26 Sodium 129 L 129 L (137-145) mmol/L Potassium 3.3 L 4.8 (3.5-5.1) mmol/L Chloride 104 96 (98-107) mmol/L Carbon Dioxide 15 L 22.9 (22-30) mmol/L BUN 24 H 26.3 (9-20) mg/dL Creatinine 1.05 1.3 (0.66-1.25) mg/dL Glucose 190 H 261 H (74-99) mg/dL Calcium 6.0 L* 8.9 (8.4-10.2) mg/dL Total Bilirubin 0.2 (0.2-1.3) mg/dL AST 34 (17-59) U/L ALT 35 (4-49) U/L Alkaline Phosphatase 47 (38-126) U/L Total Protein 4.6 L (6.3-8.2) g/dL Albumin 2.5 L (3.5-5.0) g/dL Assessment and Plan Assessment: 71-year-old male with history of right-sided hemiplegia. Admitted to the hospital with altered mental status which has resolved this morning. Mcgraw was placed for urinary retention of 700 mL. No voiding dysfunction at baseline, but is on Cardura baseline -Continue Cardura -Can remove Mcgraw prior to discharge, postvoid is less than 350 mL can leave mcgraw catheter out.
[2022-06-22 13:53] LABS: Glucose,Whole Blood 254 mg/dL (70-110)
[2022-06-22] MEDS: HYDROcodone/APAP 5-325MG 1 EACH TAB PO PRN ×2 (13:57→18:54)
[2022-06-22 16:04] LABS: Glucose,Whole Blood 190 mg/dL (70-110)
[2022-06-22 20:58] LABS: Glucose,Whole Blood 174 mg/dL (70-110)
[2022-06-23] MEDS: HEPARIN SODIUM,PORCINE/PF 5,000 UNIT/0.5 ML SYRINGE SQ SCH ×4 (00:31→23:54)
[2022-06-23] MEDS: HYDROcodone/APAP 5-325MG 1 EACH TAB PO PRN ×4 (04:57→19:01)
[2022-06-23 06:08] LABS: Glucose,Whole Blood 172 mg/dL (70-110)
[2022-06-23] MEDS: ACETAMINOPHEN TAB 325 MG TAB PO PRN (07:56)
[2022-06-23] MEDS: GABAPENTIN 300 MG CAP PO SCH ×3 (07:57→21:05)
[2022-06-23] MEDS: DOXAZOSIN 4 MG TAB PO SCH (07:57)
[2022-06-23] MEDS: INSULIN ASPART (NovoLOG) 100 UNIT/ML VIAL SQ SCH ×4 (07:57→21:06)
[2022-06-23] MEDS: DAPAGLIFLOZIN PROPANEDIOL 10 MG TABLET PO SCH (07:57)
[2022-06-23] MEDS: PIOGLITAZONE 45 MG TAB PO SCH (07:57)
[2022-06-23] MEDS: glipiZIDE 10 MG TAB PO SCH ×2 (07:58→21:06)
[2022-06-23] MEDS: lisinopriL 10 MG TAB PO SCH (07:58)
[2022-06-23] MEDS: buPROPion XL 300 MG TAB.ER.24H PO SCH (07:58)
[2022-06-23] MEDS: CHOLECALCIFEROL 125 MCG (5000 IU) TABLET PO SCH (07:58)
[2022-06-23 10:46] LABS: Anion Gap 8.8 mmol/L (10.00-18.00); BUN/Creat Ratio 19.2 Ratio (12.00-20.00); Blood Urea Nitrogen 19.2 mg/dL (9.0-27.0); Carbon Dioxide 22.2 mmol/L (20.0-27.5); Non-African American GFR(CKD) 75.9 (60.0-200.0); Potassium 5.4 mmol/L (3.5-5.5)
--- NOTE | 2022-06-23 11:09 | P.PN ---
Subjective Progress Note Date: 06/23/22 Principal diagnosis: [facility] Hospital Course: 71-year-old male with history of diabetes, hypertension, poliomyelitis presenting for acute encephalopathy, and electrolyte abnormalities. Patient was recently hospitalized at [place] for rhabdomyolysis, new onset right sided weakness. During that time he was suspected to have stroke, workup was negative. Patient claims that he also had MRI of his spine which did not show anything significant. He was then discharged to rehab, and noticed improvement in his right upper extremity, but not in his lower extremity. He was released from rehab due to insurance issues. Since coming home, he has been having diffi culty ambulating, transferring, eating and drinking. His son had noted that he was confused, and decided to bring him to the hospital. On admission, vital signs were within normal limits, his sodium was 129, potassium 3.3, glucose of 295, calcium of 6 and albumin of 2.5, magnesium 1.1 , lactic acid at 3. Since being admitted, his altered mentation has resolved, electrolytes have improved with repletion. Neurology was consulted. Recommending outpatient follow-up for lower extremity weakness. Urology was consulted, recommending voiding trial. Patient wants her to voiding trial at rehab as an outpatient. Subjective: Patient seen and examined at bedside. No acute events overnight. He denies any significant chest pain, shortness of breath, abdominal pain, nausea, vomiting, diarrhea, or constipation. He has a Mcgraw catheter in place for urinary retention. He continues to have right-sided lower extremity weakness. Pertinent positives and negatives as discussed above, a complete review of systems was performed and all other systems are negative. Vitals Signs Reviewed. General: nontoxic, no distress, appears at stated age Derm: warm, dry Head: atraumatic, normocephalic, symmetric Eyes: EOMI, no lid lag, anicteric sclera Mouth: no lip lesion, mucus membranes moist Cardiovascular: S1S2 reg, no murmur Lungs: CTA bilateral, no rhonchi, no rales , no accessory muscle use Abdominal: soft, nontender to palpation, no guarding, no appreciable organomegaly Ext: no gross muscle atrophy, no edema, no contractures, 2/5 right lower extremity strength, 3/5 left lower extremity strength Neuro: CN II-XI grossly intact, no focal neuro deficits, diminished sensation in the right lower extremity Psych: Alert, oriented 3, appropriate affect Assessment and Plan: Acute metabolic encephalopathy , resolved Hypokalemia, hypomagnesemia, hypokalemia - resolved - Head CT no acute pathology Hyponatremia, likely hypovolemic - improved -Continue fluids, encourage oral intake Right sided weakness Questionable history of polio myelitis -Patient claims that MRI spine was completed, normal -No recent lower extremity EMG studies -neuro consult - recommending outpatient follow-up -PT eval -fall precautions Urinary retention BPH -s/p mcgraw cath -urology consult -continue doxazosin -Patient would like to do a voiding trial as an outpatient Hyperglycemia , DM -insulin sliding scale -resume oral hypoglycemic agents Anemia , denies GI bleeding continue to monitor DVT ppx: Subcu heparin Code status: Full code Anticipated discharge place: Likely rehab Anticipated discharge time: When bed available Objective - Vital Signs Vital signs: Vital Signs Temp 98.6 F 06/23/22 07:52 Pulse 86 06/23/22 07:52 Resp 16 06/23/22 07:52 BP 155/68 06/23/22 07:52 Pulse Ox 96 06/23/22 07:52 FiO2 Intake & Output 06/22/22 06/23/22 06/23/22 18:59 06:59 18:59 Intake Total 600 Output Total 1600 1200 Balance -1000 -1200 Intake: Oral 600 Output: Urine 1600 1200 Other: Voiding Method Indwelling Catheter Indwelling Catheter Indwelling Catheter - Labs CBC & Chem 7: 06/22/22 04:26 06/23/22 07:17 Labs: Abnormal Lab Results - Last 24 Hours (Table) 06/22/22 06/22/22 06/22/22 Range/Units 11:26 13:52 16:04 Sodium (135-145) mmol/L Anion Gap (10.00-18.00) mmol/L Glucose (70-110) mg/dL POC Glucose (mg/dL) 250 H 254 H 190 H (70-110) mg/dL 06/22/22 06/23/22 06/23/22 Range/Units 20:57 06:06 07:17 Sodium 132 L (135-145) mmol/L Anion Gap 8.80 L (10.00-18.00) mmol/L Glucose 149 H (70-110) mg/dL POC Glucose (mg/dL) 174 H 172 H (70-110) mg/dL
[2022-06-23 11:54] LABS: Glucose,Whole Blood 153 mg/dL (70-110)
[2022-06-23] MEDS: SODIUM CHLORIDE 0.9% 1,000 ML IV SCH ×2 (11:56→23:54)
[2022-06-23] MEDS: polyethylene glycoL 3350 17 GM POWD.PACK PO SCH (12:52)
[2022-06-23] MEDS: SENNOSIDES 8.6 MG TAB PO SCH (12:53)
[2022-06-23 14:02] VITALS: BMI 31.0
[2022-06-23 17:02] LABS: Glucose,Whole Blood 126 mg/dL (70-110)
[2022-06-23] MEDS: SYMBICORT 160-4.5 MCG INHALER INHALATION PRN (20:06)
[2022-06-23 20:22] LABS: Glucose,Whole Blood 186 mg/dL (70-110)
[2022-06-23] MEDS: ATORVASTATIN 10 MG TAB PO SCH (21:06)
[2022-06-24] MEDS: HYDROcodone/APAP 5-325MG 1 EACH TAB PO PRN ×3 (04:41→16:37)
[2022-06-24 05:40] LABS: Glucose,Whole Blood 118 mg/dL (70-110)
[2022-06-24] MEDS: INSULIN ASPART (NovoLOG) 100 UNIT/ML VIAL SQ SCH ×2 (06:11→12:25)
[2022-06-24 07:23] VITALS: RESP 16
[2022-06-24] MEDS: SYMBICORT 160-4.5 MCG INHALER INHALATION PRN (08:17)
[2022-06-24] MEDS: HEPARIN SODIUM,PORCINE/PF 5,000 UNIT/0.5 ML SYRINGE SQ SCH (09:26)
[2022-06-24] MEDS: lisinopriL 10 MG TAB PO SCH (09:28)
[2022-06-24] MEDS: GABAPENTIN 300 MG CAP PO SCH ×2 (09:28→16:36)
[2022-06-24] MEDS: glipiZIDE 10 MG TAB PO SCH (09:28)
[2022-06-24] MEDS: DAPAGLIFLOZIN PROPANEDIOL 10 MG TABLET PO SCH (09:28)
[2022-06-24] MEDS: CHOLECALCIFEROL 125 MCG (5000 IU) TABLET PO SCH (09:28)
[2022-06-24] MEDS: buPROPion XL 300 MG TAB.ER.24H PO SCH (09:28)
[2022-06-24] MEDS: DOXAZOSIN 4 MG TAB PO SCH (09:28)
[2022-06-24] MEDS: SENNOSIDES 8.6 MG TAB PO SCH (09:28)
[2022-06-24] MEDS: PIOGLITAZONE 45 MG TAB PO SCH (09:29)
[2022-06-24] MEDS: polyethylene glycoL 3350 17 GM POWD.PACK PO SCH (09:30)
--- NOTE | 2022-06-24 09:43 | P.PN ---
Subjective Progress Note Date: 06/23/22 Patient was initially seen by Dr. Harman. Please refer to her note for details. Patient has history of seizure disorder, came with breakthrough seizure, felt to be related to possible alcohol withdrawal. Patient has reported history of seizures. He stopped drinking about 10 days ago. Recently had an EEG with his own neurologist, but the results are not available. Patient has history of multiple neck and back surgeries. He states he had 4 broken neck and 2 lumbar surgeries He states he had 2 neck surgeries in 1984 and then in 1997. He had another surgery in [place] in 2008. Patient states that he had undergone back surgery by Dr. Ray at [facility] on 11/16/2018. His last surgery was by Dr. Tang. Patient states that on 05/17/2022 he wanted to get off the bed, and he slid down, and tried to flip over, and use handrails to get up, tried to berry picker himself, but his right arm slipped and his left leg slipped and then he could not get himself up, and then passed out. He stayed on a prone "inverted" position laying against the bed for about 6-1/2 hours before he came to, and got help. He was taken to [facility], and was ruled out for CVA. He was diagnosed with COVID at that time. He also underwent MRI of his neck and back and was seen by his neurosurgeon Dr. De León and was not felt a candidate for any surgery. He was apparently diagnosed with rhabdomyolysis and neuropraxia. He was transferred to rehab, but patient states that after a while, he was "kicked out", as his insurance would not cover it further. He reports that his right arm has improved, however his right leg continues to be weak. He states that he is supposed to have surgery on his "S1-S2 level". He also has history of polio with chronic weakness of his right leg. He has always pain in the right leg. He has chronic weakness in the right leg from polio. He has decreased hearing from the right side. Patient actually came to the hospital for slurred speech, altered mental status, confusion and elevated blood sugars, and concerns for UTI. Patient states that he has no further weakness since his initial hospitalization on 05/17/2022. Slowly getting better. Objective - Vital Signs Vital signs: Vital Signs Temp 98.3 F 06/23/22 15:25 Pulse 81 06/23/22 15:25 Resp 17 06/23/22 15:25 BP 136/66 06/23/22 15:25 Pulse Ox 97 06/23/22 15:25 FiO2 Intake & Output 06/22/22 06/23/22 06/23/22 18:59 06:59 18:59 Intake Total 600 Output Total 1600 1200 1700 Balance -1000 -1200 -1700 Weight 109.769 kg Intake: Oral 600 Output: Urine 1600 1200 1700 Uretheral (Campbell) 1700 Other: Voiding Method Indwelling Catheter Indwelling Catheter Indwelling Catheter - Exam Patient is alert and awake. Speech and language functions are normal. Cranial nerves are normal. On muscle strength testing (right/left) deltoid 4/5, biceps 5/5, triceps 5/5, tube filler 5-/5-, hip flexion 2/3+4-, Knee extension 1-2/5, ankle dorsiflexion trace/5, inversion 1/5, peronri 1/5, plantarflexion 5-/5. Deep tendon reflexes are (right/left) I said 0/2, triceps 0/2, brachioradialis 0/0, knees 0/0, ankles 0/0 and plantars are flat bilaterally. Sensory examination revealed decreased sensation for touch in the right leg as compared to the left. However his right arm is hypersensitive as compared to the left. - Labs CBC & Chem 7: 06/22/22 04:26 06/23/22 07:17 Labs: Abnormal Lab Results - Last 24 Hours (Table) 06/22/22 06/22/22 06/23/22 Range/Units 16:04 20:57 06:06 Sodium (135-145) mmol/L Anion Gap (10.00-18.00) mmol/L Glucose (70-110) mg/dL POC Glucose (mg/dL) 190 H 174 H 172 H (70-110) mg/dL 06/23/22 06/23/22 Range/Units 07:17 11:53 Sodium 132 L (135-145) mmol/L Anion Gap 8.80 L (10.00-18.00) mmol/L Glucose 149 H (70-110) mg/dL POC Glucose (mg/dL) 153 H (70-110) mg/dL Assessment and Plan Assessment: 1. 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 Hyponatremia 3. History of diabetes mellitus with hyperglycemia 4. Recent Covid 19 infection 5. History of multiple neck and back surgeries. Plan: 1. Obtain medical records of MRI of the brain, cervical, thoracic and lumbar spines, surgeons and neurological notes and discharge summary from [facility]. 2. The patient should follow up with a neurologist as an outpatient for further testing such as EMG 3. Consider gabapentin for neuropathic pain 4. Your treatment of hyponatremia 5. Physical therapy for evaluation and treatment 6. Patient at present denies any worsening of his baseline weakness, since his incident on 05/17/2022, for which he was hospitalized at [facility]. He feels that he is slowly improving. No further regression.
[2022-06-24] MEDS ORDERED: DULoxetine HCL 30 MG CAPSULE.DR PO SCH (10:45)
[2022-06-24 11:28] LABS: Glucose,Whole Blood 272 mg/dL (70-110)
--- NOTE | 2022-06-24 12:31 | P.PN ---
Subjective Progress Note Date: 06/24/22 Principal diagnosis: [facility] Hospital Course: 71-year-old male with history of diabetes, hypertension, poliomyelitis presenting for acute encephalopathy, and electrolyte abnormalities. Patient was recently hospitalized at [place] for rhabdomyolysis, new onset right sided weakness. During that time he was suspected to have stroke, workup was negative. Patient claims that he also had MRI of his spine which did not show anything significant. He was then discharged to rehab, and noticed improvement in his right upper extremity, but not in his lower extremity. He was released from rehab due to insurance issues. Since coming home, he has been having diffi culty ambulating, transferring, eating and drinking. His son had noted that he was confused, and decided to bring him to the hospital. On admission, vital signs were within normal limits, his sodium was 129, potassium 3.3, glucose of 295, calcium of 6 and albumin of 2.5, magnesium 1.1 , lactic acid at 3. Since being admitted, his altered mentation has resolved, electrolytes have improved with repletion. Neurology was consulted. Recommending outpatient follow-up for lower extremity weakness. Urology was consulted, recommending voiding trial. Campbell discontinued. Patient pending discharge to rehab facility. Subjective: Patient seen and examined at bedside. No acute events overnight. He denies any significant chest pain, shortness of breath, abdominal pain, nausea, vomiting, diarrhea, or constipation. Campbell catheter now discontinued. He continues to have right-sided lower extremity weakness. Pertinent positives and negatives as discussed above, a complete review of systems was performed and all other systems are negative. Vitals Signs Reviewed. General: nontoxic, no distress, appears at stated age Derm: warm, dry Head: atraumatic, normocephalic, symmetric Eyes: EOMI, no lid lag, anicteric sclera Mouth: no lip lesion, mucus membranes moist Cardiovascular: S1S2 reg, no murmur Lungs: CTA bilateral, no rhonchi, no rales , no accessory muscle use Abdominal: soft, nontender to palpation, no guarding, no appreciable organomegaly Ext: no gross muscle atrophy, no edema, no contractures, 2/5 right lower extremity strength, 3/5 left lower extremity strength Neuro: CN II-XI grossly intact, no focal neuro deficits, diminished sensation in the right lower extremity Psych: Alert, oriented 3, appropriate affect Assessment and Plan: Acute metabolic encephalopathy , resolved Hypokalemia, hypomagnesemia, hypokalemia - resolved - Head CT no acute pathology Hyponatremia, likely hypovolemic - improved -Continue fluids, encourage oral intake Right sided weakness Questionable history of polio myelitis -Patient claims that MRI spine was completed, normal -No recent lower extremity EMG studies -neuro consult - recommending outpatient follow-up -PT eval -fall precautions Urinary retention BPH -urology consult -continue doxazosin -Campbell catheter discontinued Hyperglycemia , DM -insulin sliding scale -resume oral hypoglycemic agents Anemia , denies GI bleeding continue to monitor DVT ppx: Subcu heparin Code status: Full code Anticipated discharge place: Likely rehab at [facility] Anticipated discharge time: When bed available Objective - Vital Signs Vital signs: Vital Signs Temp 97.9 F 06/24/22 07:22 Pulse 71 06/24/22 07:22 Resp 16 06/24/22 07:22 BP 132/57 06/24/22 07:22 Pulse Ox 100 06/24/22 07:22 FiO2 Intake & Output 06/23/22 06/24/22 06/24/22 18:59 06:59 18:59 Output Total 1999 976 Balance -1999 -976 Weight 109.769 kg Output: Urine 1999 750 Uretheral (Campbell) 1700 Post Void Residual 226 Other: Voiding Method Indwelling Catheter # Bowel Movements 1 - Labs CBC & Chem 7: 06/22/22 04:26 06/23/22 07:17 Labs: Abnormal Lab Results - Last 24 Hours (Table) 06/23/22 06/23/22 06/23/22 Range/Units 07:17 16:56 20:20 POC Glucose (mg/dL) 126 H 186 H (70-110) mg/dL Hemoglobin A1c 8.2 H (0.0-6.0) % 06/24/22 06/24/22 Range/Units 05:36 11:14 POC Glucose (mg/dL) 118 H 272 H (70-110) mg/dL Hemoglobin A1c (0.0-6.0) %
--- NOTE | 2022-06-24 14:01 | P.PN ---
Subjective Progress Note Date: 06/24/22 06/24/2022: Patient was seen for a follow-up. Patient's niece was present today. Patient complains of pain 7/10 involving the right leg, mainly involving top of the garcia. He has spasms in the right leg. Patient is receiving [place]. 06/23/2022: Patient was initially seen by Dr. Harman. Please refer to her note for details. Patient has history of seizure disorder, came with breakthrough seizure, felt to be related to possible alcohol withdrawal. Patient has reported history of seizures. He stopped drinking about 10 days ago. Recently had an EEG with his own neurologist, but the results are not available. Patient has history of multiple neck and back surgeries. He states he had 4 broken neck and 2 lumbar surgeries He states he had 2 neck surgeries in 1984 and then in 1997. He had another surgery in [place] in 2008. Patient states that he had undergone back surgery by Dr. Ray at [facility] on 11/16/2018. His last surgery was by Dr. Tang. Patient states that on 05/17/2022 he wanted to get off the bed, and he slid down, and tried to flip over, and use handrails to get up, tried to picking machine operator himself, but his right arm slipped and his left leg slipped and then he could not get himself up, and then passed out. He stayed on a prone "inverted" position laying against the bed for about 6-1/2 hours before he came to, and got help. He was taken to [facility], and was ruled out for CVA. He was diagnosed with COVID at that time. He also underwent MRI of his neck and back and was seen by his neurosurgeon Dr. De León and was not felt a candidate for any surgery. He was apparently diagnosed with rhabdomyolysis and neuroprax ia. He was transferred to rehab, but patient states that after a while, he was "kicked out", as his insurance would not cover it further. He reports that his right arm has improved, however his right leg continues to be weak. He states that he is supposed to have surgery on his "S1-S2 level". He also has history of polio with chronic weakness of his right leg. He has always pain in the right leg. He has chronic weakness in the right leg from polio. He has decreased hearing from the right side. Patient actually came to the hospital for slurred speech, altered mental status, confusion and elevated blood sugars, and concerns for UTI. Patient states that he has no further weakness since his initial hospitalization on 05/17/2022. Slowly getting better. Objective - Vital Signs Vital signs: Vital Signs Temp 97.9 F 06/24/22 07:22 Pulse 71 06/24/22 07:22 Resp 16 06/24/22 07:22 BP 132/57 06/24/22 07:22 Pulse Ox 100 06/24/22 07:22 FiO2 Intake & Output 06/23/22 06/24/22 06/24/22 18:59 06:59 18:59 Output Total 19996 Balance -1999 Weight 109.769 kg Output: Urine 1999 750 Uretheral (Campbell) 1700 Post Void Residual 226 Other: Voiding Method Indwelling Catheter # Bowel Movements 1 - Exam Patient is alert and awake. Speech and language functions are normal. Cranial nerves are normal. On muscle strength testing (right/left) deltoid 4+/5, biceps 5/5, triceps 4+ /5, triceps 4+/5, secondary history teacher 5-/5-. In the lower extremities hip flexion 2/4+, knee extension 1-2/5-, hip abduction 4-/5-, hip abduction 4/5, ankle dorsiflexion 1- 2/5, plantarflexion 4-/5. Deep tendon reflexes are (right/left) biceps 0/2, triceps 0/2, brachioradialis 0/0, knees 0/0, ankles 0/0 and plantars are flat bilaterally. Sensory examination revealed decreased sensation for touch in the right anterior thigh region (L3), and right L4 distribution, somewhat in saphenous nerve distribution. Patient his numbness of the right L5 as compared to the left, but not as intense as above described region of the leg. Patient has relatively better sensation in the right S1 dermatome but still slightly less as compared to the left S1 dermatome. - Labs CBC & Chem 7: 06/22/22 04:26 06/23/22 07:17 Labs: Abnormal Lab Results - Last 24 Hours (Table) 06/23/22 06/23/22 06/23/22 Range/Units 07:17 07:17 11:53 Sodium 132 L (135-145) mmol/L Anion Gap 8.80 L (10.00-18.00) mmol/L Glucose 149 H (70-110) mg/dL POC Glucose (mg/dL) 153 H (70-110) mg/dL Hemoglobin A1c 8.2 H (0.0-6.0) % 06/23/22 06/23/22 06/24/22 Range/Units 16:56 20:20 05:36 Sodium (135-145) mmol/L Anion Gap (10.00-18.00) mmol/L Glucose (70-110) mg/dL POC Glucose (mg/dL) 126 H 186 H 118 H (70-110) mg/dL Hemoglobin A1c (0.0-6.0) % Assessment and Plan Assessment: 1. 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 Hyponatremia 3. History of diabetes mellitus with hyperglycemia 4. Recent Covid 19 infection 5. History of multiple neck and back surgeries. Plan: 1. Medical records of MRI of the brain, cervical, thoracic and lumbar spines, surgeons and neurological notes and discharge summary from [facility] has arrived, we will review. 2. The patient should follow up with a neurologist as an outpatient for further testing such as EMG 3. Patient currently on gabapentin 600 mg 3 times a day. He states he has been on gabapentin for long time. We will add Cymbalta 30 mg daily for neuropathic pain. 4. Your treatment of hyponatremia 5. Physical therapy for evaluation and treatment 6. Patient at present denies any worsening of his baseline weakness, since his incident on 05/17/2022, for which he was hospitalized at [facility]. He feels that he is slowly improving. No further regression. Addendum: Received outside records from [facility]: MRI of the lumbar spine 02/07/2022 revealed multilevel spondylotic changes. Multilevel posterior concentric disc bulging and herniation at L2-3, L4-L5 and L5-S1. Mild multilevel lateral recess stenosis due to facet arthropathy. No significant spinal canal stenosis. There is posterior left-sided L5-S1 extruded disc fragment in the spinal canal posteriorly on the left side at L5-S1. This is impinging on the S1 and S2 nerve root. No significant neural foraminal impi ngement. CTA of head and neck 05/17/2022 revealed no significant arterial disease of the head or neck. There are no significant stenosis or occlusions. There is minimal calcified plaque in the carotid bifurcations within the neck. CT of the cervical spine 05/17/2022 showed extensive postsurgical changes. Normal alignment. Severe bony encroachment of the left lateral recess and neuroforamina at the C3 4 level on the left. Bony fusion of the intervertebral discs at C3 through C7. CPK was > 220,000, AST 658, ALT 82. Patient developed acute kidney injury, was seen by vacuum frame operator. Patient was evaluated by neuro intervention Dr. Greenwood, was not a candidate for thrombectomy or TPA. Patient was seen by Dr. Domínguez neurologist 05/19/2022, and right-sided weakness and paresthesias was felt secondary to rhabdomyolysis. MRI of the brain and cervical spine reported as unremarkable. 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 The examination per neurology note revealed right upper extremity with deltoid 0, biceps 3, triceps 4 wrist extension 4. Left upper extremity 5/5, right lower extremity 1/5 and left lower extremity 5/5. Neurosurgical consultation by Dr. Willson 05/17/2022: MRI cervical spine/brain reviewed. No new areas of compression or new cord signal changes seen on MRI. MRI brain reported negative. It was reported right upper extremity no antigravity attempts to lift off the bed, right lower extremity no antigravity. Some quad contraction with attempt. Unable to do PF/DF. Left upper extremity 4/5, left lower extremity hip flexion, knee flexion 2/5, knee extension 0/5 DT/PF 4/5 MRI of the brain 05/28/2022 revealed involutional changes of the brain. No intracranial mass, mass effect or midline shift. No hemorrhage or acute ischemia. MRI cervical spine 05/28/2022 revealed limited due to artifact. 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 Mild cord flattening at C3 4 and C4 5. Mild canal stenosis at C5 6. Mild C7-T1 anterolisthesis. 2-D echo and 06/29/2022 revealed left ventricular cavity is normal. Wall thickness is mildly increased. EF is 55-60%. No thrombus. Left atrium not well visualized. Plan: Based upon above information, patient's right-sided weakness has remarkably improved. Recommended patient outpatient follow up with neurosurgeon Dr. Ray regarding lumbar disc herniation/extrusion. Recommend outpatient neurological follow-up for EMG and nerve conduction study testing of right upper and right lower extremity. B12 is 717, folate 5.6. Start folic acid 1 mg daily. TSH normal 1.79. Hemoglobin A1c is elevated at 8.2. Recommend optimize control of diabetes to target A1c < 7.0 Neurologically clear. Time with Patient: Greater than 30 (Spent another 30 minutes reviewing records, besides another 20 minutes evaluation as above.)
[2022-06-24 14:55] VITALS: BP 125/68; PULSE 99; TEMP 98.1
--- NOTE | 2022-06-24 15:20 | P.DS ---
Providers Date of admission: 06/21/22 20:08 Expected date of discharge: 06/24/22 Attending physician: Seble Gaona MD Consults: 06/21/22 20:08 Consult Physician Urgent Consulting Provider: Michael Serra Consult Reason/Comments: urinary retention Do you want consulting provider notified?: Yes 06/22/22 04:06 Consult Physician Routine Consulting Provider: Norman Loredo Consult Reason/Comments: rt lower ext weak Do you want consulting provider notified?: Yes, Notify in am Primary care physician: KALA PAULINO DO Hospital Course: Discharge Diagnosis: Acute metabolic encephalopathy Hypokalemia Hypomagnesemia Hypokalemia Hypovolemic hyponatremia Right-sided leg weakness History of poliomyelitis Urinary retention BPH Hyperglycemia Diabetes Hospital Course: 71-year-old male with history of diabetes, hypertension, poliomyelitis presenting for acute encephalopathy, and electrolyte abnormalities. Patient was recently hospitalized at [facility] for rhabdomyolysis, new onset right sided weakness. During that time he was suspected to have stroke, workup was negative. Patient claims that he also had MRI of his spine which did not show anything significant. He was then discharged to rehab, and noticed improvement in his right upper extremity, but not in his lower extremity. He was released from rehab due to insurance issues. Since coming home, he has been having difficulty ambulating, transferring, eating and drinking. His son had noted that he was confused, and decided to bring him to the hospital. On admission, vital signs were within normal limits, his sodium was 129, potassium 3.3, glucose of 295, calcium of 6 and albumin of 2.5, magnesium 1.1 , lactic acid at 3. Since being admitted, his altered mentation has resolved, electrolytes have improved with repletion. Sodium improved with fluids. Neurology was consulted. Recommending outpatient follow-up for lower extremity weakness. Urology was consulted, recommending voiding trial. Campbell discontinued. Patient seen and examined at bedside. Vital signs reviewed and stable. General: nontoxic, no distress, appears at stated age Derm: warm, dry Head: atraumatic, normocephalic, symmetric Eyes: EOMI, no lid lag, anicteric sclera Mouth: no lip lesion, mucus membranes moist Cardiovascular: S1S2 reg, no murmur Lungs: CTA bilateral, no rhonchi, no rales , no accessory muscle use Abdominal: soft, nontender to palpation, no guarding, no appreciable organomegaly Ext: no gross muscle atrophy, no edema, no contractures, 2/5 right lower extremity strength, 3/5 left lower extremity strength Neuro: CN II-XI grossly intact, no focal neuro deficits, diminished sensation in the right lower extremity Psych: Alert, oriented 3, appropriate affect A total of minutes of time were spent preparing this complex discharge summary. Patient was discharged on . Patient Condition at Discharge: Stable Plan - Discharge Summary Discharge Rx Participant: No New Discharge Prescriptions: New DULoxetine HCL [Cymbalta] 30 mg PO DAILY cap Sennosides [Senokot] 8.6 mg PO DAILY tab Continue Pioglitazone [Actos] 45 mg PO DAILY Cholecalciferol [Vitamin D3 (125 Mcg = 5000 Iu)] 125 mcg PO DAILY Acetaminophen [Tylenol Arthritis] 650 mg PO Q4H PRN PRN Reason: Pain Or Fever > 100.5 lisinopriL [Zestril] 10 mg PO DAILY Empagliflozin [Jardiance] 10 mg PO DAILY buPROPion XL [Wellbutrin XL] 300 mg PO DAILY tiZANidine HCL 2 mg PO HS PRN PRN Reason: Muscle Pain Terazosin HCl 10 mg PO DAILY Simvastatin [Zocor] 20 mg PO HS metFORMIN HCL ER [Glucophage XR] 1,000 mg PO HS glipiZIDE [Glucotrol] 10 mg PO BID Albuterol Sulfate [Ventolin HFA] 2 puff INHALATION RT-Q6H PRN PRN Reason: Shortness Of Breath Vitamin B-12 250 Mcg 250 mcg PO DAILY Budesonide/Formoterol Fumarate [Symbicort 160-4.5 Mcg Inhaler] 2 puff INHALATION RT-BID PRN PRN Reason: Shortness Of Breath Gabapentin 600 mg PO TID #30 tab HYDROcodone/APAP 5-325MG [[place] 5-325] 1 tab PO Q4HR PRN #20 tab PRN Reason: Pain Discontinued Furosemide [Lasix] 20 mg PO DIRECTED Discharge Medication List Acetaminophen [Tylenol Arthritis] 650 mg PO Q4H PRN 06/21/22 [History] Albuterol Sulfate [Ventolin HFA] 2 puff INHALATION RT-Q6H PRN 06/21/22 [History] Budesonide/Formoterol Fumarate [Symbicort 160-4.5 Mcg Inhaler] 2 puff INHALATION RT-BID PRN 06/21/22 [History] Cholecalciferol [Vitamin D3 (125 Mcg = 5000 Iu)] 125 mcg PO DAILY 06/21/22 [History] Empagliflozin [Jardiance] 10 mg PO DAILY 06/21/22 [History] Pioglitazone [Actos] 45 mg PO DAILY 06/21/22 [History] Simvastatin [Zocor] 20 mg PO HS 06/21/22 [History] Terazosin HCl 10 mg PO DAILY 06/21/22 [History] Vitamin B-12 250 Mcg 250 mcg PO DAILY 06/21/22 [History] buPROPion XL [Wellbutrin XL] 300 mg PO DAILY 06/21/22 [History] glipiZIDE [Glucotrol] 10 mg PO BID 06/21/22 [History] lisinopriL [Zestril] 10 mg PO DAILY 06/21/22 [History] metFORMIN HCL ER [Glucophage XR] 1,000 mg PO HS 06/21/22 [History] tiZANidine HCL 2 mg PO HS PRN 06/21/22 [History] DULoxetine HCL [Cymbalta] 30 mg PO DAILY cap 06/24/22 [Rx] Gabapentin 600 mg PO TID #30 tab 06/24/22 [Rx] HYDROcodone/APAP 5-325MG [[place] 5-325] 1 tab PO Q4HR PRN #20 tab 06/24/22 [Rx] Sennosides [Senokot] 8.6 mg PO DAILY tab 06/24/22 [Rx] Follow up Appointment(s)/Referral(s): KALA PAULINO DO [Primary Care Provider] [facility] [[facility]-STAFF] - As Needed Activity/Diet/Wound Care/Special Instructions: Please see her PCP in 1-2 days. Please see a neurologist for right-sided leg we akness for further workup. Discharge Disposition: TRANSFER TO SNF/ECF
[2022-06-24] MEDS ORDERED: FOLIC ACID 1 MG TAB PO SCH (15:45)
[2022-06-24 16:29] LABS: Glucose,Whole Blood 132 mg/dL (70-110)
--- NOTE | 2022-06-24 16:55 | XR ---
EXAMINATION TYPE: XR Hip Complete RT DATE OF EXAM: 06/24/2022 4:33 PM INDICATION: Patient age:Male; 71 years old; Reason for study: Right hip pain; COMPARISON: None. TECHNIQUE: The right hip was examined in the frontal and lateral projections FINDINGS: No evidence for acute process, joint dislocation or significant soft tissue swelling. Osteo phyte formation of the right acetabulum. IMPRESSION: 1. No acute process. 2. Mild right hip osteoarthrosis.
== END 2022-06-24 17:10 | DRG 71 ==
LOC: EC 15:03 → 4SSUR 20:08
PROVIDERS: ADMIT Internal Medicine; ATTEND Internal Medicine
DX: G93.41 Metabolic encephalopathy (principal); M62.82 Rhabdomyolysis; N17.9 Acute kidney failure, unspecified; G81.91 Hemiplegia, unspecified affecting right dominant side; E11.65 Type 2 diabetes mellitus with hyperglycemia; F31.9 Bipolar disorder, unspecified; E87.6 Hypokalemia; E83.42 Hypomagnesemia; E83.51 Hypocalcemia; R47.81 Slurred speech; E86.1 Hypovolemia; G40.909 Epilepsy, unspecified, not intractable, without status epilepticus; M43.13 Spondylolisthesis, cervicothoracic region; M48.02 Spinal stenosis, cervical region; M47.817 Spondylosis without myelopathy or radiculopathy, lumbosacral region; M47.892 Other spondylosis, cervical region; M43.12 Spondylolisthesis, cervical region; R30.0 Dysuria; G14 Postpolio syndrome; D64.9 Anemia, unspecified; N40.1 Benign prostatic hyperplasia with lower urinary tract symptoms; R33.8 Other retention of urine; I10 Essential (primary) hypertension; G25.81 Restless legs syndrome; Z91.040 Latex allergy status; Z79.899 Other long term (current) drug therapy; Z79.51 Long term (current) use of inhaled steroids; Z79.84 Long term (current) use of oral hypoglycemic drugs; Z87.891 Personal history of nicotine dependence; Z86.16 Personal history of COVID-19; Z82.49 Family history of ischemic heart disease and other diseases of the circulatory system
CPT/HCPCS: 36415; 51798; 70450; 73502; 80048; 80053; 81003; 82330; 82550; 82607; 82746; 83036; 83605; 83735; 84443; 84484; 85025; 94640; 96361; 96365; 96366; 99285